=== PATIENT | male | born 1980 | race Caucasian/White ===

== ENCOUNTER 2016-11-05 11:18 | Emergency (ER) | payer SELFPAY ==
[~2016-11-05] VITALS: Ht 170.2 cm; Wt 86.9 kg
[~2016-11-05 11:18] MED LIST: PERC5TAB12 PO
[2016-11-05 11:21] VITALS: BP 116/73; PULSE 73; RESP 18; TEMP 98.1; O2SAT 99
--- NOTE | 2016-11-05 11:53 | PD ---
HPI Chief Complaint: Oral / Dental Pain or Problem Time Seen by Provider: 11:42 Travel History International Travel<30 days: No Contact w/Intl Traveler<30days: No Traveled to known affect area: No History of Present Illness HPI 36 year old male presents to the ED for evaluation of a "few day" history of dental pain. Onset gradual, radiating into the jaw. Patient endorses chills but has not measured a fever at home. Denies difficulties swallowing, sore throat, ear pain, sinus congestion, cough. He is a current smoker. No treatment attempted at home. The patient does not have a dentist. He denies chronic health problems, takes no daily medications. NKDA. PFSH Past Medical History Autoimmune Disease: No Anxiety: Yes Depression: Yes Cancer: No Cardiovascular Problems: No Diminished Hearing: No Endocrine: No Gastrointestinal Disorders: Yes GERD: Yes Genitourinary: No Immune Disorder: No Neurologic: Yes Psychiatric: Yes Reproductive: No Respiratory: Yes Migraines: Yes Past Surgical History Abdominal Surgery: No Cardiac Surgery: No Ear Surgery: No Endocrine Surgery: No Eye Surgery: No Genitourinary Surgery: No Gynecologic Surgery: No Oral Surgery: No Thoracic Surgery: No Other Surgery: Yes Social History Alcohol Use: Yes Tobacco Use: Yes Substance Use: No Allergies-Medications (Allergen,Severity, Reaction): Coded Allergies: No Known Allergies (Verified , 11/05/16) Reported Meds & Prescriptions Reported Meds & Active Scripts Active Magic Mouthwash Adult Liq (Multi-Ingredient Mouthwash/Gargle) 120 Ml Susp 5 Ml SWISH-SWAL ACHS PRN Each 5mL contains: Nystatin 200,000units, Diphenhydramine 4.25mg, Viscous Lidocaine 10mg, Chung syrup 0.8 mL Clindamycin (Clindamycin HCl) 300 Mg Cap 300 Mg PO Q6H 7 Days Review of Systems Except as stated in HPI: all other systems reviewed are Neg Physical Exam Narrative GENERAL: Well-nourished, well-developed white male in no acute distress. SKIN: Warm and dry. Multiple tattoos, notably facial tattoo near the left eye. HEAD: Normocephalic. Atraumatic. EYES: No scleral icterus. No injection or drainage. PERRLA. EOMI. ENT: Pearly ortega tympanic membranes bilaterally. Nasal mucosa is moist. Oropharynx without erythema, edema or exudate. Airway patent. Uvula midline. DENTAL: No loose or chipped teeth. No malocclusion. Poor dentition overall. Multiple gold capped teeth. Tooth #24 is broken with the pulp exposed. Mild erythema and tenderness of the surrounding mucosa. NECK: Supple, trachea midline. No JVD or lymphadenopathy. CARDIOVASCULAR: Regular rate and rhythm without murmurs, gallops, or rubs. No carotid bruits. 2+ DP and radial pulses bilaterally. RESPIRATORY: Breath sounds clear and equal bilaterally. No accessory muscle use. GASTROINTESTINAL: Abdomen soft, non-tender, nondistended. + Bowel sounds MUSCULOSKELETAL: No cyanosis, or edema. Full, active range of motion. Strength 5/5. Neurovascularly intact. BACK: Nontender without obvious deformity. No CVA tenderness. Data Data Last Documented VS Vital Signs Date Time Temp Pulse Resp B/P Pulse Ox O2 Delivery O2 Flow Rate FiO2 11/05/16 11:21 98.1 73 18 116/73 99 MDM Medical Decision Making Medical Screen Exam Complete: Yes Emergency Medical Condition: Yes Differential Diagnosis dental abscess versus dental caries versus periodontal disease versus other Narrative Course 36 year old male presents to the ED for evaluation of a "few day" history of dental pain. Onset gradual, radiating into the jaw. Patient endorses chills but has not measured a fever at home. Denies difficulties swallowing, sore throat, ear pain, sinus congestion, cough. He is a current smoker. No treatment attempted at home. The patient does not have a dentist. Vitals reviewed. Physical exam reveals multiple tattoos, notable tattoo under left eye. Patient is wearing gold partial caps on the bottom front teeth. Poor dentition overall. Multiple gold caps on the teeth. Tooth #24 is broken with the pulp exposed. There is mild erythema and tenderness to the surrounding mucosa. Patient was prescribed clindamycin 300 mg 4 times a day 7 days and Magic mouthwash. The patient states that he has Magic mouthwash at home and requests "something stronger." I counseled him that if this has been ongoing problem he should've seen the dentist as described previous discharge, there is no indication for narcotic pain medications for dental pain. He is instructed take the medication as prescribed. He is provided with a list of community resources for dentists. He is stable and discharged home. Diagnosis Primary Impression: Dental caries extending into pulp Referrals: Dentist Patient Instructions: Dental Caries (ED), General Instructions Additional Instructions: Rest, hydrate. Take all antibiotics as prescribed, even if symptoms resolve during the course of treatment. Magic mouthwash 4-5 times a day as needed for pain. Follow-up with the dentist. Return to the ED for any urgent or emergent medical condition. Med/Other Pt SpecificInfo: Prescription(s) given Scripts Zmqlybju-Otqeepdehvouhkj-Prupkwqcy Liq (Magic Mouthwash Adult Liq)120 Ml Susp5 Ml SWISH-SWAL ACHS PRN (PAIN SCALE 1 TO 10) #120 ML Ref 0 Each 5mL contains: Nystatin 200,000units, Diphenhydramine 4.25mg, Viscous Lidocaine 10mg, Chung syrup 0.8 mL Prov:Luis Gregory MD 11/05/16 Clindamycin 300 Mg Xyc039 Mg PO Q6H 7 Days Ref 0 Prov:Luis Gregory MD 11/05/16 Disposition: 01 DISCHARGE HOME Condition: Stable Marilyn Burnham Nov 05, 2016 11:53
[2016-11-05] MEDS ORDERED: CLIN1CAP6 PO (11:57)
[2016-11-05] MEDS ORDERED: MAGICADU2 SWISH-SWAL (11:57)
== END 2016-11-05 12:14 | disposition home or self-care (01) ==
LOC: PHEFT 11:18
DX: K02.9 Dental caries, unspecified (principal); R68.83 Chills (without fever)
CPT/HCPCS: 99282

== ENCOUNTER 2017-09-13 21:02 | Emergency (ER) | payer SELFPAY ==
[~2017-09-13 21:02] MED LIST changes: +CLIN300C5 PO; +MAGICADU2 SWISH-SWAL; -PERC5TAB12 PO
[2017-09-13 21:22] VITALS: BP 128/75; PULSE 82; RESP 20; TEMP 99; O2SAT 97
[2017-09-13] MEDS ORDERED: CYCL10TA PO (23:18)
[2017-09-13] MEDS ORDERED: NABU1TAB37 PO (23:18)
--- NOTE | 2017-09-13 23:18 | PD ---
HPI . Right flank pain Chief Complaint: Musculoskeletal Complaint Time Seen by Provider: 23:01 Travel History International Travel<30 days: No Contact w/Intl Traveler<30days: No Traveled to known affect area: No History of Present Illness HPI This patient presents with a chief complaint of right flank pain. Onset was 2 days ago. Pain is described as sharp and rated 10/10. It is exacerbated by breathing and moving. It is unrelieved by Tylenol. He has no associated symptoms such as cough, fever, urinary tract symptoms. PFSH Past Medical History Autoimmune Disease: No Anxiety: Yes Depression: Yes Cancer: No Cardiovascular Problems: No Diminished Hearing: No Endocrine: No Gastrointestinal Disorders: Yes GERD: Yes Genitourinary: No Immune Disorder: No Neurologic: Yes Psychiatric: Yes Reproductive: No Respiratory: Yes Migraines: Yes Past Surgical History Abdominal Surgery: No Cardiac Surgery: No Ear Surgery: No Endocrine Surgery: No Eye Surgery: No Genitourinary Surgery: No Gynecologic Surgery: No Oral Surgery: No Thoracic Surgery: No Other Surgery: Yes Social History Alcohol Use: Yes Tobacco Use: Yes Substance Use: No Allergies-Medications (Allergen,Severity, Reaction): Coded Allergies: No Known Allergies (Verified , 11/05/16) Reported Meds & Prescriptions Reported Meds & Active Scripts Active Magic Mouthwash Adult Liq (Multi-Ingredient Mouthwash/Gargle) 120 Ml Susp 5 Ml SWISH-SWAL ACHS PRN Each 5mL contains: Nystatin 200,000units, Diphenhydramine 4.25mg, Viscous Lidocaine 10mg, Chung syrup 0.8 mL Clindamycin (Clindamycin HCl) 300 Mg Cap 300 Mg PO Q6H 7 Days Review of Systems Except as stated in HPI: all other systems reviewed are Neg General / Constitutional: No: Fever, Chills Cardiovascular: No: Chest Pain or Discomfort Respiratory: No: Shortness of Breath Gastrointestinal: No: Nausea, Vomiting, Diarrhea, Abdominal Pain Genitourinary: Positive: Flank Pain, No: Urgency, Frequency, Dysuria Physical Exam Narrative GENERAL: This patient is lying on the stretcher almost asleep in no distress at all. SKIN: warm/dry. Normal color. HEAD: Normocephalic. Atraumatic. EYES: Pupils equal and round. No scleral icterus. No injection or drainage. ENT: No nasal bleeding or discharge. Mucous membranes pink and moist. NECK: Trachea midline. Full range of motion without pain.. CARDIOVASCULAR: Regular rate and rhythm. Heart sounds are normal. RESPIRATORY: No accessory muscle use. Clear to auscultation. Breath sounds equal bilaterally. GASTROINTESTINAL: Abdomen soft. Nontender. Bowel sounds present. Nondistended. No CVA tenderness. MUSCULOSKELETAL: Mild tenderness in the right lateral low back muscles. NEUROLOGICAL: Awake and alert. No obvious cranial nerve deficits. Motor grossly within normal limits. Normal speech. PSYCHIATRIC: Appropriate mood and affect; insight and judgment normal. Data Data Last Documented VS Vital Signs Date Time Temp Pulse Resp B/P (MAP) Pulse Ox O2 Delivery O2 Flow Rate FiO2 09/13/17 21:22 99.0 82 20 128/75 (92) 97 MDM Medical Decision Making Medical Screen Exam Complete: Yes Emergency Medical Condition: Yes Differential Diagnosis Differential diagnosis of flank pain includes but is not limited to kidney stone , pyelonephritis, musculoskeletal pain, PE Narrative Course This patient presents with chief complaint of right flank pain. He does not have any associated symptoms. His pain appears to be muscular. He will be discharged with prescriptions for Relafen and Flexeril. Diagnosis Primary Impression: Right flank pain Patient Instructions: Flank Pain (ED), General Instructions Med/Other Pt SpecificInfo: Prescription(s) given Scripts Cyclobenzaprine (Flexeril) 10 Mg Tab 10 MG PO TID for Muscle Spasm, #15 TAB 0 Refills Prov: Raquel Monroy MD 09/13/17 Nabumetone (Nabumetone) 500 Mg Tab 500 MG PO BID for Pain-Inflammation, #60 TAB 0 Refills Prov: Raquel Monroy MD 09/13/17 Disposition: 01 DISCHARGE HOME Condition: Stable Raquel Monroy MD Sep 13, 2017 23:18
[2017-09-14 00:02] VITALS: BP 133/82; PULSE 68; RESP 20; O2SAT 98
--- NOTE | 2017-09-14 01:52 | RADRPT ---
EXAM DATE/TIME: 09/14/2017 01:24 [facility] COMPARISON: No previous studies available for comparison. INDICATIONS : Right side rib pain. MEDICAL HISTORY : None. SURGICAL HISTORY : Cholecystectomy. ENCOUNTER: Initial ACUITY: 4 - 6 days PAIN SCORE: 10/10 LOCATION: Right lower quadrant FINDINGS: Multiple views of the right ribs were performed. There is no evidence of displaced fracture. No dee tructive lesions or areas of periosteal thickening are seen. Expiratory view of the chest is negativ e for pneumothorax. The mediastinal structures are midline. CONCLUSION: Negative right rib series. Jeff Goode MD on September 14, 2017 at 1:49 Board Certified Radiologist. This report was verified electronically.
[2017-09-14 02:38] VITALS: BP 121/64; TEMP 98.7
== END 2017-09-14 02:43 | disposition home or self-care (01) ==
LOC: PHED 21:02
DX: R10.9 Unspecified abdominal pain (principal); Z72.0 Tobacco use
CPT/HCPCS: 71101; 99284